=== PATIENT | female | born 1950 | race Caucasian/White ===

== ENCOUNTER 2018-03-13 10:25 | Day surgery (SDC) | payer MEDICARE, BC ==
[~2018-03-13] VITALS: Ht 160 cm; Wt 74.6 kg
[~2018-03-13 10:25] MED LIST: ALBU90OI INH; AZIT250 PO; ONDA8 PO; OXYACE5T PO; PRED20 PO; PROCODE120 PO
[2018-03-13] MEDS ORDERED: OMEGA-3100 MG (11:30)
[2018-03-13] MEDS ORDERED: Daily Vitamin1 EAC8 (11:30)
== END 2018-03-13 15:39 | disposition home or self-care (01) ==
LOC: ORSCSDS 10:25
PROVIDERS: Orthopaedic Surgery
PROC: 01N50ZZ Release Median Nerve, Open Approach (ICD-10-PCS; principal; 2018-03-13 12:15)
DX: G56.01 Carpal tunnel syndrome, right upper limb (principal)
CPT/HCPCS: J0171; J0690; J2250; J3010; J7120

== ENCOUNTER 2020-04-23 20:38 | Emergency (ER) | payer MEDICARE, BC ==
[~2020-04-23] VITALS: Ht 162.6 cm; Wt 52.2 kg
[~2020-04-23 20:38] MED LIST changes: +Daily Vitamin1 EAC8; +OMEGA-3100 MG
[2020-04-23 21:38] LABS: BASOPHILS ABSOLUTE AUTO 0.06 K/mm3 (0.00-0.23); BASOPHILS PERCENT AUTO 1 % (0-2); EOSINOPHILS ABSOLUTE AUTO 0.07 K/mm3 (0.00-0.68); EOSINOPHILS PERCENT AUTO 1 % (0-6); Hematocrit 40.6 % (33.0-51.0); Hemoglobin 13.9 g/dL (11.5-16.0); IMMATURE GRAN ABSOLUTE AUTO 0.01 K/mm3 (0.00-0.10); IMMATURE GRAN PERCENT AUTO 0 % (0-1); LYMPHOCYTES ABSOLUTE AUTO 2.97 K/mm3 (0.84-5.20); LYMPHOCYTES PERCENT AUTO 46 % (21-46); MONOCYTES ABSOLUTE AUTO 0.65 K/mm3 (0.16-1.47); MONOCYTES PERCENT AUTO 10 % (4-13); Mean Corpuscular HGB 30.1 pg (26.0-34.0); Mean Corpuscular HGB Conc 34.2 g/dL (31.5-36.5); Mean Corpuscular Volume 88 fL (80-100); Mean Platelet Volume 9.9 fL (9.1-12.4); NEUTROPHILS ABSOLUTE AUTO 2.77 K/mm3 (1.96-9.15); NEUTROPHILS PERCENT AUTO 42 % (41-73); Platelet Count 253 K/mm3 (150-400); RDW Coefficient Variation 13.7 % (11.7-14.2); RDW Standard Deviation 43.8 fL (35.1-46.3); Red Blood Cell Count 4.62 M/mm3 (3.80-5.20); White Blood Cell Count 6.53 K/mm3 (4.00-11.30)
[2020-04-23 21:56] LABS: Albumin/Globulin Ratio 1.1 (0.8-1.8); Bilirubin, Total 0.7 mg/dL (0.1-1.0); Bun/Creatinine Ratio 20.8 (12.0-20.0); Creatinine, Blood 1.01 mg/dL (0.40-1.00); Globulin, Blood 3.6 g/dL (2.2-4.0); Potassium, Blood 3.3 mmol/L (3.5-5.5); Total Protein, Blood 7.6 g/dL (6.4-8.2)
[2020-04-23 21:57] LABS: Source, Urine Clean Catch
[2020-04-23 21:59] LABS: Bilirubin, Urine Neg (Neg); Blood, Urine 3+ (Neg); Glucose Qualitative, Urine Neg (Neg); Ketones, Urine Neg (Neg); Leukocyte Esterase, Urine 3+ (Neg); Nitrite, Urine Neg (Neg); Protein, Urine Neg (Neg); Specific Gravity, Urine 1.005 (1.003-1.022); Urobilinogen, Urine NORM (Normal)
[2020-04-23 22:03] LABS: Appearance, Urine Clear (Clear); Color, Urine Yellow (P-Yellow)
[2020-04-23 22:05] LABS: Bacteria Few /hpf; Red Blood Cells, Urine 0-2 /hpf (0-2); Squamous Epithelial Cells Few /hpf (Few)
== END 2020-04-24 00:35 | disposition home or self-care (01) ==
LOC: ER 20:38
PROVIDERS: Physician Assistant
DX: N20.0 Calculus of kidney (principal)
CPT/HCPCS: 36415; 74176; 80053; 81001; 83690; 85025; 87086; 93005; 93010; 96365; 96375; 99284-25; A9270; J0696; J1885; J2405

== ENCOUNTER → 2020-07-14 | Outpatient (CLI) | payer MEDICARE, BC ==
[~2020-07-14] MED LIST changes: +ASPI81CH PO; +BLOOD GLUOCSE1 EACH; +CALCIUM 600 +1 EA11 PO; +CYCL0.05OP BOTHEYES; +PERSERVISION PO; +Percocet 5-3251 EACH PO; +SUPER BEETS PO; +THERALITH; +VIT1CAPS12; +VITAMIN B12 PO; +VITAMIN B125000 MC1
[2020-07-27 06:09] LABS: BRUSHITE 0.56 ratio (0.00-3.00); CALCIUM OXALATE 3.87 ratio (0.00-6.00); CALCIUM, URINE 2.9 mg/dL (Not Estab.); CALCIUM, URINE 23.2 mg/24 hr (100.0-300.0); CHLORIDE URINE 46 (110-250); CITRIC ACID (CITRATE) 297 mg/L (Not Estab.); CITRIC ACID(CITRATE) 238 mg/24 hr (320-1240); CREATININE, URINE 1028.8 mg/24 hr (800.0-1800.0); CREATININE, URINE 128.6 mg/dL (Not Estab.); MAGNESIUM, URINE 4.5 mg/dL (Not Estab.); MONOSODIUM URATE 9.21 ratio (0.00-4.00); OSMOLALITY, URINE 836 (300-900); SODIUM, URINE 112 mmol/L (Not Estab.); SODIUM, URINE 90 (39-258); STRUVITE 0.02 ratio (0.00-1.00); URIC ACID 2.15 ratio (0.00-1.20); URINE VOLUME 800 mL/24 hr (600-1600); URINE VOLUME (PRESERVATIVE) 800 mL/24 hr (600-1600)
== END | disposition home or self-care (01) ==
LOC: LAB 16:52 → LAB SHORT 16:52
PROVIDERS: Urology
DX: N20.0 Calculus of kidney (principal)
CPT/HCPCS: 81003; 81050; 82131; 82140; 82340; 82436; 82507; 82570; 83735; 83935; 83945; 84105; 84133; 84300; 84392; 84560

== ENCOUNTER 2020-09-05 06:06 | Day surgery (SDC) | payer MEDICARE, BC ==
[~2020-09-05] VITALS: Ht 162.6 cm; Wt 74.4 kg
[~2020-09-05 06:06] MED LIST changes: -ASPI81CH PO; -BLOOD GLUOCSE1 EACH; -CALCIUM 600 +1 EA11 PO; -Percocet 5-3251 EACH PO; -THERALITH; -VIT1CAPS12; -VITAMIN B125000 MC1
--- NOTE | 2020-09-05 06:41 | NUR ---
Ambulatory in Day Surgery History, Chart, Medications and Allergies reviewed before start of procedure. Lungs clear T/O to Auscultation. Pre-Op teaching done. Pt verbalizes understanding.
[2020-09-05] MEDS ORDERED: Percocet 5-3251 EACH PO (15:47)
[2020-09-05] MEDS ORDERED: ASPI81CH PO (15:55)
--- NOTE | 2020-09-05 16:46 | NUR ---
DC'D HOME, CLEARED BY PHYS. TX, REPORTS PAIN IS TOLERABLE WITH PO PAIN MEDS, AMBULATED DOWN THE HALLS W/ WALKER, DC INSTRUCTIONS GIVEN, VERBALIZED UNDERSTANDING.
[2021-01-25] MEDS ORDERED: BLOOD GLUOCSE1 EACH (10:35)
[2021-01-25] MEDS ORDERED: CALCIUM 600 +1 EA11 PO (10:35)
== END 2020-09-05 16:43 | disposition home or self-care (01) ==
LOC: ORSCMMR 06:06 → ORD 07:30 → ORSCMMR 07:30 → SURS 10:53 → ORSCMMR 16:43
PROVIDERS: Orthopaedic Surgery
PROC: 0SRC0JA Replacement of Right Knee Joint with Synthetic Substitute, Uncemented, Open Approach (ICD-10-PCS; principal; 2020-09-05 07:30)
PROC: 8E0Y0CZ Robotic Assisted Procedure of Lower Extremity, Open Approach (ICD-10-PCS; principal; 2020-09-05 07:30)
DX: M17.11 Unilateral primary osteoarthritis, right knee (principal)
CPT/HCPCS: 27447; S2900; 73560-RT; 88300; 97110; 97116; 97162; 97530; A9270; C1776; J0171; J0360; J0690; J0735; J1100; J1885; J2250; J2370; J2405; J2704; J2710; J2795; J3010; J7120

== ENCOUNTER 2021-02-01 06:43 | Day surgery (SDC) | payer MEDICARE, BC ==
[~2021-02-01] VITALS: Ht 162.6 cm; Wt 66.1 kg
[~2021-02-01 06:43] MED LIST changes: +ASPI81CH PO; +BLOOD GLUOCSE1 EACH; +CALCIUM 600 +1 EA11 PO; +Percocet 5-3251 EACH PO
[2021-02-01] MEDS ORDERED: THERALITH (07:06)
[2021-02-01] MEDS ORDERED: VITAMIN B125000 MC1 (07:07)
[2021-02-01] MEDS ORDERED: VIT1CAPS12 (07:07)
--- NOTE | 2021-02-01 07:08 | NUR ---
02/01/21 0708 Almaz Amin PT BOWEL PREP SUTABS
== END 2021-02-01 09:25 | disposition home or self-care (01) ==
LOC: ORSCSDS 06:43
PROVIDERS: Surgery
PROC: 0DBM8ZX Excision of Descending Colon, Via Natural or Artificial Opening Endoscopic, Diagnostic (ICD-10-PCS; principal; 2021-02-01 08:00)
DX: Z12.11 Encounter for screening for malignant neoplasm of colon (principal); K52.9 Noninfective gastroenteritis and colitis, unspecified
CPT/HCPCS: 88305; J0330; J0461; J2405; J2704; J7120

== ENCOUNTER 2022-05-30 06:11 | Day surgery (SDC) | payer MEDICARE, BC ==
[~2022-05-30] VITALS: Ht 162.6 cm; Wt 72.5 kg
[~2022-05-30 06:11] MED LIST changes: +THERALITH; +VIT1CAPS12; +VITAMIN B125000 MC1
--- NOTE | 2022-05-30 06:43 | NUR ---
05/30/22 0643 Michael Alvarado TETRACAINE APPLIED TO LEFT EYE AT 0324 PLEDGET APPLIED TO LEFT EYE AT 0626 [facility]
== END 2022-05-30 08:04 | disposition home or self-care (01) ==
LOC: ORSCSDS 06:11
PROVIDERS: Ophthalmology
PROC: 08DK3ZZ Extraction of Left Lens, Percutaneous Approach (ICD-10-PCS; principal; 2022-05-30 07:30)
DX: H25.12 Age-related nuclear cataract, left eye (principal); Z79.899 Other long term (current) drug therapy
CPT/HCPCS: J2001; J2250; J3010; J3301; J7040; V2632